=== PATIENT | female | born 1970 | race Two or more races ===

== ENCOUNTER 2018-05-17 11:00 | Emergency (ER) | payer MEDICARE, OTHER ==
[~2018-05-17] VITALS: Ht 154.9 cm; Wt 95.2 kg
[~2018-05-17 11:00] MED LIST: ALBU90OI INH; CLAR500 PO; HYDGUAL120 PO; NAPR220; NAPR500 PO; TRAM50 PO
[2018-05-17] MEDS ORDERED: Voltaren100 GM TOP (11:25)
== END 2018-05-17 11:54 | disposition home or self-care (01) ==
LOC: ER 11:00
DX: M75.52 Bursitis of left shoulder (principal); Z88.6 Allergy status to analgesic agent; Z79.899 Other long term (current) drug therapy
CPT/HCPCS: 73030; 99283-25